=== PATIENT | male | born 1995 | race African-American/Black ===

== ENCOUNTER 2022-06-17 06:37 | Emergency (ER) | payer BC, OTHER ==
[~2022-06-17] VITALS: Ht 160 cm; Wt 81.6 kg
[2022-06-17 07:10] VITALS: BP 129/88
[2022-06-17] MEDS ORDERED: GUAI600T53 PO (07:32)
[2022-06-17] MEDS ORDERED: MOME17SP BNOSTRILS (07:32)
[2022-06-17] MEDS ORDERED: BENZ-13 PO (07:32)
--- NOTE | 2022-06-17 07:58 | NUR ---
COVID AND FLU SWABS DONE AND SENT TO LAB
--- NOTE | 2022-06-17 08:03 | NUR ---
Patient discharged to home in stable condition. Written and verbal after care instructions given. Patient verbalizes understanding of instruction.
== END 2022-06-17 08:04 | disposition home or self-care (01) ==
LOC: ER 06:40
DX: J06.9 Acute upper respiratory infection, unspecified (principal); Z20.822 Contact with and (suspected) exposure to COVID-19
CPT/HCPCS: 99283; 87426; 87804; C9803